=== PATIENT | female | born 1995 | race Caucasian/White ===

== ENCOUNTER 2018-04-29 00:37 | Emergency (ER) | payer OTHER ==
--- NOTE | 2018-04-29 02:10 | RADIOLOGY REPORT (SQ) ---
EXAM DESCRIPTION: XR WRIST 3 OR MORE VIEWS BILATERAL COMPLETED DATE/TME: 04/29/2018 00:00 CLINICAL HISTORY: 23 years, Female, injury COMPARISON: None. NUMBER OF VIEWS: Three view LIMITATIONS: None. FINDINGS: Comminuted intra-articular nondisplaced fracture of the right distal radius. IMPRESSION: Right distal radial fracture.
[2018-04-29] MEDS ORDERED: ACETAMINOPHEN 325 MG TABLET PO ONE (02:30)
[2018-04-29] MEDS ORDERED: IBUPROFEN 600 MG TABLET PO ONE (02:33)
[2018-04-29] MEDS ORDERED: MORPHINE SULFATE IR 15 MG TABLET PO ONE (02:43)
--- NOTE | 2018-04-29 02:49 | ER Document Report ---
ED General - General Chief Complaint: Wrist Injury Stated Complaint: FELL/HAND PAIN Time Seen by Provider: 04/29/18 02:02 Notes: Patient is a 23 year old female without chronic medical problems who presents with a right wrist injury. The patient states that she was running across the road, slipped on mud falling forward onto an outstretched right hand. She states when she landed she immediately developed a severe, constant, throbbing pain to the right wrist. She states any attempt at moving the hand worsens the pain. Nothing improves the pain. She is right-hand dominant. No history of similar injuries in the past. She denies sustaining any additional injuries during the fall. She denies any associated weakness, numbness. she has not seen her general doctor regarding today's concerns. TRAVEL OUTSIDE OF THE [place] IN LAST 30 DAYS: No - Related Data Allergies/Adverse Reactions: No Known Allergies Allergy (Unverified 04/29/18 00:45) Past Medical History - General Information source: Patient - Social History Smoking Status: Never Smoker Chew tobacco use (# tins/day): No Frequency of alcohol use: Occasional Drug Abuse: None Lives with: Spouse/Significant other Family History: Reviewed & Not Pertinent Patient has suicidal ideation: No Patient has homicidal ideation: No Renal/ Medical History: Denies: Hx Peritoneal Dialysis Review of Systems - Review of Systems Notes: Constitutional: Negative for fever. Eyes: Negative for visual changes. ENT: Negative for facial injury Cardiovascular: Negative for chest injury. Respiratory: Negative for shortness of breath. Gastrointestinal: Negative for abdominal injury. Genitourinary: Negative for genital injury Musculoskeletal: Positive for right wrist injury Skin: Negative for laceration/abrasions. Neurological: Negative for head injury. Physical Exam - Vital signs Vitals: Temp Pulse Resp BP Pulse Ox 98.7 F 86 20 123/75 99 04/29/18 00:45 04/29/18 00:45 04/29/18 00:45 04/29/18 00:45 04/29/18 00:45 Interpretation: Normal Notes: PHYSICAL EXAMINATION: GENERAL: Well-appearing, well-nourished and in no acute distress. HEAD: Atraumatic, normocephalic. EYES: sclera anicteric, conjunctiva are normal. ENT: Moist mucous membranes. NECK: Normal range of motion LUNGS: Normal work of breathing HEART: 2+ radial pulses bilaterally, capillary refill less than 1 second in all digits of the right hand EXTREMITIES: no pitting or edema. No cyanosis. Full flexion extension against resistance in all digits of the right hand. Unable to range the wrist due to pain. NEUROLOGICAL: RMU motor and sensory distribution is intact and the right hand. PSYCH: Normal mood, normal affect. SKIN: Warm, Dry, normal turgor, notable swelling of the right wrist with an associated hematoma along the dorsal aspect of the wrist. Course - Re-evaluation Re-evalutation: 04/29/18 02:46 Patient presents after a fall on an outstretched hand with a distal radius fracture on the right side. She is right-hand dominant. RMU motor and sensory distribution is intact. Capillary refill less than 2 seconds in all digits of the affected hand. No additional injuries. Sugar tong splint placed. Pain control provided. Orthopedic follow-up has been recommended. No need for reduction as the break as well approximated already. At this time will discharge with return precautions and follow-up recommendations. Verbal discharge instructions given a the bedside and opportunity for questions given. Medication warnings reviewed. Patient is in agreement with this plan and has verbalized understanding of return precautions and the need for primary care follow-up in the next 24-72 hours. - Vital Signs Vital signs: Temp Pulse Resp BP Pulse Ox 98.7 F 86 20 123/75 99 04/29/18 00:45 04/29/18 00:45 04/29/18 00:45 04/29/18 00:45 04/29/18 00:45 - Diagnostic Test Radiology reviewed: Image reviewed, Reports reviewed Radiology results interpreted by me: 04/29/18 02:49 Right wrist x-ray: Right distal radius fracture without displacement or angulation Procedures - Immobilization Right Wrist Immobilizer type: Sugar tong Performed by: Provider assisted Post-Proc Neuro Vasc Exam: Normal Alignment checked and good: Yes Discharge - Discharge Clinical Impression: Fracture of right distal radius Qualifiers: Encounter type: initial encounter Fracture type: closed Fracture morphology: unspecified fracture morphology Qualified Code(s): S52.501A - Unspecified fracture of the lower end of right radius, initial encounter for closed fracture Condition: Good Disposition: HOME, SELF-CARE Additional Instructions: You were seen today after sustaining an injury to your right wrist. You do have a break of your distal radius. You need to follow-up with orthopedic surgery within the next 3-5 days. For your pain: Take ibuprofen 600 mg and acetaminophen 1000 mg every 6 hours together as needed for pain. If this does not control your pain you may take 15 mg of oral morphine every 4 hours as needed. Please be very careful about using the oral morphine and only use this for severe pain. Return immediately to the emergency department if you have discoloration of your hand, worsening of your pain, fever, loss of sensation in your hand, or any other symptoms that are worrisome to you. Prescriptions: Morphine Sulfate [Morphine Ir 15 mg Tablet] 15 mg PO Q6HP PRN #8 tablet PRN Reason: Referrals: [facility] [Primary Care Provider] - Follow up as needed BAUTISTA VARELA DO [ACTIVE STAFF] - Follow up in 3-5 days
[2018-04-29 04:16] VITALS: BP 127/85
== END 2018-04-29 04:15 | disposition home or self-care (01) ==
LOC: ER 00:37
DX: S52.571A Other intraarticular fracture of lower end of right radius, initial encounter for closed fracture (principal); W01.0XXA Fall on same level from slipping, tripping and stumbling without subsequent striking against object, initial encounter; Y93.02 Activity, running; Y92.488 Other paved roadways as the place of occurrence of the external cause
CPT/HCPCS: 99283; 73110; 29125; L3908